=== PATIENT | female | born 1930 | race Caucasian/White ===

== ENCOUNTER 2017-07-25 10:17 | Outpatient (CLI) | payer OTHER, MEDICARE | END 2017-07-25 20:50 | disposition home or self-care (01) | LOC: SMA 10:17 | PROVIDERS: ATTEND Internal Medicine | DX: N63.10 Unspecified lump in the right breast, unspecified quadrant (principal); R92.8 Other abnormal and inconclusive findings on diagnostic imaging of breast | CPT/HCPCS: 76642; 77066 ==